=== PATIENT | female | born 1985 | race Caucasian/White ===

== ENCOUNTER → 2017-11-05 | Outpatient (CLI) | payer OTHER | LOC: FIMAGING 12:08 | PROVIDERS: ATTEND Obstetrics & Gynecology | DX: Z36.9 Encounter for antenatal screening, unspecified (principal); Z86.79 Personal history of other diseases of the circulatory system; Z91.89 Other specified personal risk factors, not elsewhere classified; Z3A.19 19 weeks gestation of pregnancy ==

== ENCOUNTER → 2018-02-01 | Outpatient (CLI) | payer OTHER | LOC: FIMAGING 14:42 | PROVIDERS: ATTEND Obstetrics & Gynecology | DX: O10.913 Unspecified pre-existing hypertension complicating pregnancy, third trimester (principal); Z3A.32 32 weeks gestation of pregnancy ==

== ENCOUNTER 2018-02-22 13:43 | Observation (INO) | payer OTHER ==
--- NOTE | 2018-02-22 15:29 | OBPROG ---
Labor Progress Note Assessment/Plan: Assessment: IUP at 35 wks h/o CHTN - checked b/p at home and was elevated no s/s of preeclampsia today Plan: B/P fine, labs fine, will d/c home 02/22/18 15:27 Subjective/Intrapartum Course: 02/22/18 15:32 Pt anxious because b/p elevated at home. had scotomata couple days ago. today , no FUNK or n/v or scotomata or RUQ pain. GFM Objective: 02/22/18 14:35 02/22/18 14:35 Total Bilirubin 0.5 mg/dL (0.1-1.4) 02/22/18 14:35 AST 22 IU/L (14-46) 02/22/18 14:35 ALT 22 IU/L (9-52) 02/22/18 14:35 blood pressure cuff does NOT correlate with current b/p here on LnD, advised pt to stop using - FHR Assessment Caraballo FHR (bpm): 140 FHR Pattern Variability: Moderate FHR Category: 1 (reactive NST, accels, no decels, good BTBV) Oxytocin Orders Assessment - Pre-Induction/Augmentation Assessment Gestational Age: 35 week(s) and 0 day(s) ICD10 Worksheet Patient Problems: Problems Problem Status Onset Elevated blood pressure affecting , antepartum Acute - ICD10 Problem Qualifiers (1) Elevated blood pressure affecting , antepartum
== END 2018-02-22 15:45 | disposition home or self-care (01) ==
LOC: FLD 13:43
PROVIDERS: ADMIT Obstetrics & Gynecology; ATTEND Obstetrics & Gynecology
DX: Z03.79 Encounter for other suspected maternal and fetal conditions ruled out (principal); Z3A.35 35 weeks gestation of pregnancy
CPT/HCPCS: 59025; G0378

== ENCOUNTER 2018-03-10 17:31 | Observation (INO) | payer OTHER ==
[2018-03-10 19:36] LABS: PLATELET COUNT 240 10^3/uL (150-400)
--- NOTE | 2018-03-10 20:21 | GHP ---
DATE OF ADMISSION: 03/10/2018 ADMITTING DIAGNOSES: 1. Intrauterine at 37 weeks 2 days. 2. Chronic hypertension, rule out superimposed preeclampsia. HISTORY OF PRESENT ILLNESS: The patient is a 32-year-old, 1, para 0-0-0 -0, at 37-2/7 weeks with an estimated due date March 29, 2018 by a 6-week ultrasound. The patient presents with complaints of elevated blood pressures at home early this morning; she checks them twice daily. Her blood pressure was 137/93, and then this afternoon at 4 o'clock was 141/99, 152/96, 138/101, 30 minutes apart. The patient states she does have a slight headache, but thinks it is because she is hungry. She denies any visual changes and only notes them when she works out. Denies any right upper quadrant pain or epigastric pain and denies any swelling in lower extremities. The patient states good movement. Denies any contractions, leakage of fluid, or vaginal bleeding. Patient has good care at [facility], and presented in her first trimester. is complicated with a history of chronic hypertension. Patient discontinued lisinopril in 2015. Baseline PIH labs as well as a 24-hour urine was normal. Patient is AMA with normal noninvasive genetic testing. Patient with a questionable history of coagulopathy; she did see a manager solar during the and a negative eval for clotting deficiency and unlikely to have a bleeding disorder. The patient began to have elevated blood pressures in the 3rd trimester at about 34 weeks, 140s over 80s at home. She did have PIH labs done which were normal with a P to C ration at that time of 0.22, the patient did not have preeclampsia. She developed anemia of . The patient did receive Tdap as well as flu vaccine. GBS culture is negative. PAST OB HISTORY: This is the patient's first . PAST FIRE LOOKOUT HISTORY: Age of menarche 13. Cycles every 30-45 days, irregular. LMP 05/30/2017. The patient denies history of abnormal Pap smears or any exposure to sexually transmitted diseases. However, patient does have a history of cold sores, HSV, and denies any genital lesions. MEDICATIONS: vitamins, DHEA, iron. ALLERGIES: No known drug allergies. PAST MEDICAL HISTORY: Chronic hypertension. History of questionable clotting issue as a baby with workup that was negative. Childhood asthma. Mild depression. PAST SURGICAL HISTORY: Remarkable for wrist surgery, wisdom teeth, ruptured L4- L5 disk. FAMILY HISTORY: Paternal aunt, leukemia. Father, leukemia. Paternal grandmother, breast. Paternal uncle, lung cancer. SOCIAL HISTORY: Patient is and lives with her . 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 Currently denies any alcohol, tobacco, or illicit drug use. REVIEW OF SYSTEMS: 10-point review of systems is negative. LABS: First trimester H and H 13.2, 37.6, platelets 259, O positive, antibody negative. RPR nonreactive. Rubella immune. Hepatitis B surface antigen negative. HIV negative. Trio screen negative. Standard panel negative. Baseline PIH labs negative. P to C ratio 0.16. UDS, urine culture, UA negative. Varicella immune. Pap, gonorrhea, chlamydia cultures negative. AFP negative. Innatal screen negative. Third trimester H and H 11 and 33. 1- hour Glucola 117. GBS culture is negative. PHYSICAL EXAMINATION: VITAL SIGNS: On admission, vital signs are stable. Patient is afebrile at 36.4, heart rate 120, did settle down to 73, respirations 18, initial blood pressure on admission 139/94 and then 120s over 70s and as low as 115/71. GENERAL APPEARANCE: The patient is well-nourished, well-developed female, alert and oriented x3. No apparent distress. SKIN: Warm, dry without rash. NEURO: Grossly intact. CARDIOVASCULAR: Regular rate and rhythm. LUNGS: Clear to auscultation bilaterally. ABDOMEN: Gravid, soft , nontender. PELVIC: Exam deferred. EXTREMITIES: Normal to inspection without calf tenderness or edema. Normal reflexes and no clonus. ASSESSMENT AND PLAN: The patient is a 32-year-old, 1, para 0, at 37 and 1/7 weeks with chronic hypertension, rule out superimposed preeclampsia. 1. Admit to Labor and Delivery for observation. 2. Serial blood pressures, PIH labs, P to C ratio pending. 3. NST is reactive, Category 1 tracing. 4. Continue to closely monitor. 5. Blood pressures here are normal 120s over 70s, except for upon admission, the patient is asymptomatic at this time. Headache did resolve after eating. If PIH labs are stable, we will send the patient home with PIH precautions and to keep her scheduled OB appointment 03/12/2018. /[id number]/MODL [email or web address]
--- NOTE | 2018-03-10 20:43 | OBPROG ---
Labor Progress Note Assessment/Plan: Assessment: Pt is a 32 y/o @ 37 2/7 weeks with chronic HTN, r/o superimposed preeclampsia Plan: PIH labs all wnl; P:C is 0.7, no preeclampsia at this time Urine did show bacteria, leuks and was indicated for a urine cx-will await results and hold off on treating at this time, since pt is asymptomatic and Macrobid this late in third trimester can cause hemolytic anemia in baby BPs remain stable Patient is stable for d/c home with PIH precautions To keep scheduled visit in office 03/12/18 03/10/18 20:45 Subjective/Intrapartum Course: 03/10/18 20:45 Pt is feeling fine, FUNK resolved after eating and no other symptoms at this time Objective: 03/10/18 19:15 03/10/18 19:15 Uric Acid 4.1 mg/dL (2.5-6.8) 03/10/18 19:15 Total Bilirubin 0.5 mg/dL (0.1-1.4) 03/10/18 19:15 Conjugated Bilirubin 0.0 mg/dL (0.0-0.5) 03/10/18 19:15 Unconjugated Bilirubin 0.5 mg/dL (0.0-1.1) 03/10/18 19:15 AST 20 IU/L (14-46) 03/10/18 19:15 ALT 25 IU/L (9-52) 03/10/18 19:15 Lactate Dehydrogenase 392 IU/L (313-618) 03/10/18 19:15 - FHR Assessment Caraballo FHR (bpm): 140 FHR Pattern Variability: Moderate FHR Category: 2 Oxytocin Orders Assessment - Pre-Induction/Augmentation Assessment Gestational Age: 37 week(s) and 2 day(s) ICD10 Worksheet Patient Problems: Problems Problem Status Onset Elevated blood pressure affecting , antepartum Acute
== END 2018-03-10 20:55 | disposition home or self-care (01) ==
LOC: FLD 17:31
PROVIDERS: ADMIT Obstetrics & Gynecology; ATTEND Obstetrics & Gynecology
PROC: 4A1HX4Z Monitoring of Products of Conception, Cardiac Electrical Activity, External Approach (ICD-10-PCS; principal; 2018-03-10)
DX: O10.913 Unspecified pre-existing hypertension complicating pregnancy, third trimester (principal); Z3A.37 37 weeks gestation of pregnancy
CPT/HCPCS: 59025; G0378

== ENCOUNTER 2018-03-21 17:04 | Observation (INO) | payer OTHER ==
--- NOTE | 2018-03-21 22:23 | OBPROG ---
Labor Progress Note Assessment/Plan: Assessment: Here for robertson placement prior to IOL tomorrow AM 0600. NST on admission Category I, reactive. SCE prior to robertson bulb placement loose //-2, medium constency. Cook ripening balloon placed with 60cc in the UTERINE balloon and 40cc in the VAGINAL. Pt tolerated placement well, discharged home. Will return for Pitocin at 0600 tomorrow. Subjective/Intrapartum Course: Feeling fine, no real change in ctx's or pressure since visit with Dr. Robin on Thursday. - SVE Dilation (cm): 1 Effacement (%): Less than 50 Station: -2 - Contraction Pattern Assessment Current Contraction Pattern: Irregular - FHR Assessment Caraballo FHR (bpm): 135 FHR Pattern Variability: Moderate FHR Category: 1 Oxytocin Orders Assessment - Pre-Induction/Augmentation Assessment Gestational Age: 38 week(s) and 6 day(s) ICD10 Worksheet Patient Problems: Problems Problem Status Onset Elevated blood pressure affecting , antepartum Acute
== END 2018-03-21 18:31 | disposition home or self-care (01) ==
LOC: FLD 17:04
PROVIDERS: ADMIT Obstetrics & Gynecology; ATTEND Obstetrics & Gynecology
PROC: 0U7C7DZ Dilation of Cervix with Intraluminal Device, Via Natural or Artificial Opening (ICD-10-PCS; principal; 2018-03-21)
DX: Z34.93 Encounter for supervision of normal pregnancy, unspecified, third trimester (principal); Z3A.38 38 weeks gestation of pregnancy
CPT/HCPCS: 59200; G0378

== ENCOUNTER 2018-03-22 06:11 | Inpatient (IN) | payer OTHER ==
[2018-03-22] MEDS ORDERED: OXYTOCIN/RINGERS LACTATE 1,000 ML IV PRN (07:49)
[2018-03-22] MEDS ORDERED: TERBUTALINE SULFATE 1 MG/ML VIAL IV PRN (07:49)
[2018-03-22] MEDS ORDERED: LR 1,000 ML IV PRN (07:49)
[2018-03-22] MEDS ORDERED: MISOPROSTOL 200 MCG TAB PO PRN (07:49)
[2018-03-22] MEDS ORDERED: LIDOCAINE 1% 300 MG/30 ML SDV SC PRN (07:49)
[2018-03-22] MEDS ORDERED: OLIVE OIL 118 ML BTL MISC PRN (07:49)
[2018-03-22] MEDS ORDERED: IBUPROFEN 600 MG TAB PO PRN (07:49)
[2018-03-22] MEDS ORDERED: AMMONIA AROMATIC 1 EACH AMP IH PRN (07:49)
[2018-03-22] MEDS ORDERED: EPSOM SALT 454 GM TP PRN (07:49)
[2018-03-22] MEDS ORDERED: LR 500 ML IV PRN (07:50)
[2018-03-22] MEDS ORDERED: OXYTOCIN/RINGERS LACTATE 500 ML IV SCH (08:00)
[2018-03-22] MEDS ORDERED: AMMONIA AROMATIC 1 EACH AMP IH ONE (08:02)
[2018-03-22] MEDS ORDERED: OXYTOCIN 10 UNIT/ML VIAL ONE (08:02)
[2018-03-22] MEDS ORDERED: LIDOCAINE 1% 300 MG/30 ML SDV ONE (08:02)
[2018-03-22] MEDS ORDERED: OLIVE OIL 118 ML BTL ONE (08:02)
[2018-03-22] MEDS ORDERED: TERBUTALINE SULFATE 1 MG/ML VIAL ONE (08:02)
[2018-03-22] MEDS ORDERED: MISOPROSTOL 200 MCG TAB ONE (08:02)
[2018-03-22 08:17] LABS: PLATELET COUNT 255 10^3/uL (150-400)
--- NOTE | 2018-03-22 09:39 | PDGENHP ---
History and Physical - Chief Complaint induction of labor in setting of chronic HTN - History of Present Illness 33 at 39 wk by 6 wk US not c/w LMP - here for IOL in setting of cHTN. Has been on meds for HTN in the past - Lisinopril, but no meds for the past 2+ years. Baseline PIH labs normal in and when repeated at 34w4d in setting of some labile BPs. Today - good FM, no VB, no LOF, no FUNK, no vis changes, no epigastric pain, no edema. course otherwise uncomplicated. labs - all wnl, including: O pos Rub Imm GBS neg Innatal, carrier screen and Std screen all neg History Information - Allergies/Home Medication List Allergies/Adverse Reactions: cats Allergy (Uncoded 02/22/18 14:27) dogs Allergy (Uncoded 02/22/18 14:27) Home Medications: Dha 1 PO DAILY 03/22/18 [Last Taken 03/19/18 21:00] I have personally reviewed and updated: family history, medical history, social history, surgical history Past Medical History: childhood asthma. hx of mild depression. L4-L5 disc issues - fine after chiropractic treatment - Surgical History Additional surgical history: left wrist surgery. wisdom teeth. no complications with either - Family History Positive for: diabetes type II (P Unc - also lung ca) Additional family history: M - a fib. P Aunt - leukemia. F - leukemia. pGM - Br Ca - Social History Smoking Status: Never smoked Alcohol Use: None Drug Use: None Review of Systems Review of Systems: ROS: 10pt was reviewed & negative except for what was stated in HPI & below Physical Exam Physical Exam: FHR 145 reactive toco - rare ctxns VSS mild tachycardia on admit, now HR 80s BP 129/81 Constitutional: no apparent distress, appears nourished Eyes: PERRL, EOMI Ears, Nose, Mouth, Throat: moist mucous membranes, hearing normal, ears appear normal Cardiovascular: regular rate and rhythym Respiratory: no respiratory distress, no rales or rhonchi Gastrointestinal: normoactive bowel sounds (gravid, fundus c/w 39 weeks, NT), other (Abd US done - confirmed cephalic presentation) Genitourinary: no bladder fullness Skin: warm, normal color, mottled Musculoskeletal: full muscle strength Neurologic: AAOx3 Psychiatric: interacting appropriately, not anxious Lab Data & Imaging Review 03/22/18 07:15 03/22/18 07:15 WBC 11.88 10^3/uL (3.80-9.50) H 03/22/18 07:15 RBC 3.92 10^6/uL (4.18-5.33) L 03/22/18 07:15 Hgb 12.8 g/dL (12.6-16.3) 03/22/18 07:15 Hct 36.9 % (38.0-47.0) L 03/22/18 07:15 MCV 94.1 fL (81.5-99.8) 03/22/18 07:15 MCH 32.7 pg (27.9-34.1) 03/22/18 07:15 MCHC 34.7 g/dL (32.4-36.7) 03/22/18 07:15 RDW 12.7 % (11.5-15.2) 03/22/18 07:15 Plt Count 255 10^3/uL (150-400) 03/22/18 07:15 MPV 10.7 fL (8.7-11.7) 03/22/18 07:15 Neut % (Auto) 79.2 % (39.3-74.2) H 03/22/18 07:15 Lymph % (Auto) 13.4 % (15.0-45.0) L 03/22/18 07:15 Sharp % (Auto) 6.0 % (4.5-13.0) 03/22/18 07:15 Eos % (Auto) 0.6 % (0.6-7.6) 03/22/18 07:15 Baso % (Auto) 0.3 % (0.3-1.7) 03/22/18 07:15 Nucleat RBC Rel Count 0.0 % (0.0-0.2) 03/22/18 07:15 Absolute Neuts (auto) 9.42 10^3/uL (1.70-6.50) H 03/22/18 07:15 Absolute Lymphs (auto) 1.59 10^3/uL (1.00-3.00) 03/22/18 07:15 Absolute Monos (auto) 0.71 10^3/uL (0.30-0.80) 03/22/18 07:15 Absolute Eos (auto) 0.07 10^3/uL (0.03-0.40) 03/22/18 07:15 Absolute Basos (auto) 0.03 10^3/uL (0.02-0.10) 03/22/18 07:15 Absolute Nucleated RBC 0.00 10^3/uL (0-0.01) 03/22/18 07:15 Immature Gran % 0.5 % (0.0-1.1) 03/22/18 07:15 Immature Gran # 0.06 10^3/uL (0.00-0.10) 03/22/18 07:15 BUN 11 mg/dL (7-23) 03/22/18 07:15 Creatinine 0.5 mg/dL (0.6-1.0) L 03/22/18 07:15 Estimated GFR > 60 03/22/18 07:15 Uric Acid 4.7 mg/dL (2.5-6.8) 03/22/18 07:15 Total Bilirubin 0.5 mg/dL (0.1-1.4) 03/22/18 07:15 Conjugated Bilirubin 0.1 mg/dL (0.0-0.5) 03/22/18 07:15 Unconjugated Bilirubin 0.4 mg/dL (0.0-1.1) 03/22/18 07:15 AST 21 IU/L (14-46) 03/22/18 07:15 ALT 20 IU/L (9-52) 03/22/18 07:15 Lactate Dehydrogenase 559 IU/L (313-618) 03/22/18 07:15 Patient ABO/Rh O POSITIVE 03/22/18 07:15 Antibody Screen NEGATIVE 03/22/18 07:15 Assessment & Plan Assessment: 33 at 39 wk, undergoing IOL in setting of cHTN 1) normal pih labs, BPS stable, cephalic presentation confirmed 2) had Cook catheter placed yesterday evening - 60 U, 40 V - attempted tension and is still in place 3) will start pitocin induction and remove catheter mid day if has not spontaneously come out. B/R/A of pitocin discussed, EFW = 3400gm Isabela Robin MD, FACOG [facility]
--- NOTE | 2018-03-22 17:32 | OBPROG ---
Labor Progress Note Assessment/Plan: Assessment: 33 at 39 wk, undergoing IOL secondary to chronic HTN, not currently on any meds. Slow progress - not in active labor, but transcervical balloon catheter did come out intact. Pitocin at max dosing. Plan: Will stop pitocin, allow pt to eat and shower, and resume pitocin induction after that. Isabela Robin MD, FACOG [facility] 03/22/18 17:27 Subjective/Intrapartum Course: Pt feeling very mild contractions, no pain. Is a little hungry. Frustrated at minimal progress. No LOF. Good FM. No ssx PIH. 03/22/18 17:32 Objective: 03/22/18 07:15 03/22/18 07:15 Patient ABO/Rh O POSITIVE 03/22/18 07:15 Uric Acid 4.7 mg/dL (2.5-6.8) 03/22/18 07:15 Total Bilirubin 0.5 mg/dL (0.1-1.4) 03/22/18 07:15 Conjugated Bilirubin 0.1 mg/dL (0.0-0.5) 03/22/18 07:15 Unconjugated Bilirubin 0.4 mg/dL (0.0-1.1) 03/22/18 07:15 AST 21 IU/L (14-46) 03/22/18 07:15 ALT 20 IU/L (9-52) 03/22/18 07:15 Lactate Dehydrogenase 559 IU/L (313-618) 03/22/18 07:15 gen - pleasant, NAD - SVE Dilation (cm): 3 Effacement (%): 75 Station: -3 Membranes: Intact Amniotic Fluid Color: Clear - Contraction Pattern Assessment Current Contraction Pattern: Regular - FHR Assessment Caraballo FHR (bpm): 145 FHR Pattern Variability: Moderate FHR Category: 1 Oxytocin Orders Assessment - Pre-Induction/Augmentation Assessment Gestational Age: 39 week(s) and 0 day(s) ICD10 Worksheet Patient Problems: Problems Problem Status Onset Elevated blood pressure affecting , antepartum Acute
--- NOTE | 2018-03-22 23:50 | OBPROG ---
Labor Progress Note Assessment/Plan: Assessment: 33 at 39 wk, undergoing IOL secondary to chronic HTN, not currently on any meds. Slow progress - not in active labor, but transcervical balloon catheter did come out intact. Pitocin at max dosing. Plan: Will stop pitocin, allow pt to eat and shower, and resume pitocin induction after that. Isabela Robin MD, FACOG [facility] 03/22/18 17:27 A/P: 33 at 39 wk, undergoing IOL 2/2 cHTN - stopped pitocin, pt ate and showered and pitocin resumed. Has made a small amount of change. Will continue with pitocin for now. [facility] 03/22/18 23:57 Subjective/Intrapartum Course: Pt feeling very mild contractions, no pain. Is a little hungry. Frustrated at minimal progress. No LOF. Good FM. No ssx PIH. 03/22/18 17:32 Pt doing well, feeling a little more pressure, though not discomfort. Some bloody show, but no LOF. 03/22/18 23:59 Objective: 03/22/18 07:15 03/22/18 07:15 Patient ABO/Rh O POSITIVE 03/22/18 07:15 Uric Acid 4.7 mg/dL (2.5-6.8) 03/22/18 07:15 Total Bilirubin 0.5 mg/dL (0.1-1.4) 03/22/18 07:15 Conjugated Bilirubin 0.1 mg/dL (0.0-0.5) 03/22/18 07:15 Unconjugated Bilirubin 0.4 mg/dL (0.0-1.1) 03/22/18 07:15 AST 21 IU/L (14-46) 03/22/18 07:15 ALT 20 IU/L (9-52) 03/22/18 07:15 Lactate Dehydrogenase 559 IU/L (313-618) 03/22/18 07:15 VS - 36.9 84 16 126/69 gen - pleasant, NAD P/C = 0.2 - SVE Dilation (cm): 4 Effacement (%): 50 Membranes: Intact - Contraction Pattern Assessment Current Contraction Pattern: Regular (q2-4) - FHR Assessment Caraballo FHR (bpm): 130 FHR Pattern Variability: Moderate FHR Category: 1 - Physical Exam General Appearance: WD/WN Oxytocin Orders Assessment - Pre-Induction/Augmentation Assessment Indication: IOL Presentation: Occiput Posterior Gestational Age: 39 week(s) and 0 day(s) Gestational Age Determined By: Ultrasound (at 6 wk) Estimated Weight: Less than 2500g Current Contraction Pattern: Regular - Heart Rate Pattern Caraballo FHR Baseline (bpm): 140 FHR Category: 1 FHR Pattern Variability: Moderate FHR Accelerations: Present FHR Decelerations: Variable (had a prolonged variable for 1.5 min intermittently in the 80s at 2312) ICD10 Worksheet Patient Problems: Problems Problem Status Onset Chronic hypertension affecting Acute Chronic hypertension affecting Acute Elevated blood pressure affecting , antepartum Acute - ICD10 Problem Qualifiers (1) Chronic hypertension affecting (2) Chronic hypertension affecting
[2018-03-23] MEDS ORDERED: hydrOXYzine HCL 50 MG TAB PO PRN (00:49)
[2018-03-23] MEDS ORDERED: fentaNYL 100 MCG/2 ML INJ ONE (02:53)
[2018-03-23] MEDS ORDERED: fentaNYL 2MCG/ML/BUP 0.1% RTU 100 ML BAG EP ONE (02:53)
[2018-03-23] MEDS ORDERED: PHENYLEPHRINE HCL 100 MCG/ML SYR ONE (02:54)
[2018-03-23] MEDS ORDERED: BUPIVACAINE 0.25% 30 ML SDV ONE (02:54)
[2018-03-23] MEDS ORDERED: ONDANSETRON 4 MG/2 ML VIAL IVP PRN ×2 (03:33→03:34)
[2018-03-23] MEDS ORDERED: METOCLOPRAMIDE 10 MG/2 ML VIAL IVP PRN ×2 (03:33→03:34)
[2018-03-23] MEDS ORDERED: PHENYLEPHRINE HCL 100 MCG/ML SYR IVP PRN ×2 (03:33→03:34)
--- NOTE | 2018-03-23 03:37 | PREANESOB ---
Obstetric Pre-Anesthesia Info - General Info : 1 Para: 0 SUKI: 03/29/18 Gestational Age: 39 week(s) and 0 day(s) - Labor Status Cervical Dilation per last OB SVE: 4 Station per last OB SVE: -3 Amniotic Fluid Color: Clear Anesthesia Allergies/Adverse Reactions: Allergy/AdvReac Type Severity Reaction Status Date / Time cats Allergy Uncoded 02/22/18 14:27 dogs Allergy Uncoded 02/22/18 14:27 Home Medications: Medication Instructions Recorded Dha 1 PO DAILY 03/22/18 Visit Medications: Generic Name Dose Route Start Last Admin Trade Name Freq PRN Reason Stop Dose Admin Ammonia (Aromatic Spirit) 1 each 03/22/18 07:49 Ammonia Aromatic IH 04/01/18 07:48 ONCE PRN Fainting Hydroxyzine HCl 100 mg 03/23/18 00:49 03/23/18 00:55 Hydroxyzine Hcl PO 09/19/18 00:48 100 mg HS PRN Administration Sleep Lactated Ringer's 1,000 mls @ 0 mls/hr 03/22/18 07:49 03/22/18 08:14 Lr IV 03/23/18 07:48 1,000 mls PRN PRN Administration SEE PROTOCOL CONDITIONS Protocol Per Protocol Lactated Ringer's 500 mls @ 500 mls/hr 03/22/18 07:50 Lr IV 03/23/18 07:50 PRN PRN Maternal Hypotension Oxytocin/Lactated Ringer's 1,000 mls @ 125 mls/hr 03/22/18 07:49 Pitocin 20 Units/Lr (Premix) IV PRN PRN Post bleeding Oxytocin/Lactated Ringer's 500 mls @ 0 mls/hr 03/22/18 08:00 03/22/18 08:13 Pitocin 30 Units/Lr (Premix) IV 09/18/18 07:59 500 mls CONT CHINTAN Administration Protocol Per Protocol Ibuprofen 600 mg 03/22/18 07:49 Motrin PO ONCE PRN post , pain Lidocaine HCl 300 mg 03/22/18 07:49 Lidocaine Hcl 1% SC 09/18/18 07:48 ONCE PRN episiotomy Magnesium Sulfate 454 gm 03/22/18 07:49 Epsom Salt TP 09/18/18 07:48 Q1H PRN perineal discomfort Misoprostol 800 - 1,000 mcg 03/22/18 07:49 Cytotec PO 09/18/18 07:48 ONCE PRN Vaginal Atony/Bleeding [place] Oil 118 ml 03/22/18 07:49 Sweet Oil MISC 09/18/18 07:48 ONCE PRN perineal massage Terbutaline Sulfate 0.25 mg 03/22/18 07:49 Brethine IV 09/18/18 07:48 ONCE PRN Tachysystole Discontinued Medications Generic Name Dose Route Start Last Admin Trade Name Renetta PRN Reason Stop Dose Admin Ammonia (Aromatic Spirit) Confirm 03/22/18 08:02 Ammonia Aromatic Administered 03/22/18 08:03 Dose 1 each IH .STK-MED ONE Bupivacaine HCl Confirm 03/23/18 02:54 Sensorcaine 0.25% Sdv Administered 03/23/18 02:55 Dose 30 ml .ROUTE .STK-MED ONE Fentanyl Confirm 03/23/18 02:53 Sublimaze Administered 03/23/18 02:54 Dose 100 mcg .ROUTE .STK-MED ONE Fentanyl/Bupivacaine HCl Confirm 03/23/18 02:53 Fentanyl/Bupivacaine/Ns 2 Mcg/Ml 0.1% (Premix Administered 03/23/18 02:54 Dose 100 ml EP .STK-MED ONE Lidocaine HCl Confirm 03/22/18 08:02 Lidocaine Hcl 1% Administered 03/22/18 08:03 Dose 300 mg .ROUTE .STK-MED ONE Misoprostol Confirm 03/22/18 08:02 Cytotec Administered 03/22/18 08:03 Dose 1,000 mcg .ROUTE .STK-MED ONE [place] Oil Confirm 03/22/18 08:02 Sweet Oil Administered 03/22/18 08:03 Dose 118 ml .ROUTE .STK-MED ONE Oxytocin Confirm 03/22/18 08:02 Pitocin Administered 03/22/18 08:03 Dose 40 unit .ROUTE .STK-MED ONE Phenylephrine HCl Confirm 03/23/18 02:54 Neosynephrine Administered 03/23/18 02:55 Dose 1,000 mcg .ROUTE .STK-MED ONE Terbutaline Sulfate Confirm 03/22/18 08:02 Brethine Administered 03/22/18 08:03 Dose 1 mg .ROUTE .STK-MED ONE - Vital Signs Height/Weight (Nursing): Height 175.26 cm Weight 81.647 kg - Focused Exam Mallampati Score: Class 2 Mouth exam: normal dental/mouth exam Pulmonary: no respiratory distress Cardiovascular: regular rate and rhythym Labs: 03/22/18 07:15 03/22/18 07:15 Patient ABO/Rh O POSITIVE 03/22/18 07:15 Uric Acid 4.7 mg/dL (2.5-6.8) 03/22/18 07:15 Total Bilirubin 0.5 mg/dL (0.1-1.4) 03/22/18 07:15 Conjugated Bilirubin 0.1 mg/dL (0.0-0.5) 03/22/18 07:15 Unconjugated Bilirubin 0.4 mg/dL (0.0-1.1) 03/22/18 07:15 AST 21 IU/L (14-46) 03/22/18 07:15 ALT 20 IU/L (9-52) 03/22/18 07:15 Lactate Dehydrogenase 559 IU/L (313-618) 03/22/18 07:15 - Plan Consent Signed and on Chart: Yes Urgent/Emergent Case: Francis jacobson completed preop but documented later for safe timely pt care
[2018-03-23] MEDS ORDERED: LR 500 ML IV SCH ×2 (04:00)
[2018-03-23] MEDS ORDERED: fentaNYL 2MCG/ML/BUP 0.1% RTU 100 ML EP SCH ×2 (04:00)
--- NOTE | 2018-03-23 05:19 | OBDEL ---
Info Type: Vaginal Presentation at Delivery: Vertex L&D Analgesia/Anesthesia Type: Epidural GBS+: No Intrapartum Medications: Generic Name Dose Route Start Last Admin Trade Name Freq PRN Reason Stop Dose Admin Hydroxyzine HCl 100 mg 03/23/18 00:49 03/23/18 00:55 Hydroxyzine Hcl PO 09/19/18 00:48 100 mg HS PRN Administration Sleep Lactated Ringer's 1,000 mls @ 0 mls/hr 03/22/18 07:49 03/22/18 08:14 Lr IV 03/23/18 07:48 1,000 mls PRN PRN Administration SEE PROTOCOL CONDITIONS Protocol Per Protocol Oxytocin/Lactated Ringer's 500 mls @ 0 mls/hr 03/22/18 08:00 03/22/18 08:13 Pitocin 30 Units/Lr (Premix) IV 09/18/18 07:59 500 mls CONT CHINTAN Administration Protocol Per Protocol - Hospital Course Intrapartum: Pt feeling very mild contractions, no pain. Is a little hungry. Frustrated at minimal progress. No LOF. Good FM. No ssx PIH. 03/22/18 17:32 Pt doing well, feeling a little more pressure, though not discomfort. Some bloody show, but no LOF. 03/22/18 23:59 Indications for Delivery: Chronic Hypertension Controlled No Meds Vaginal Delivery - Delivery Provider Delivery Physician/CNM: Isabela Robin - Labor and Delivery Onset of Contractions Date: 03/23/18 Onset of Contractions Time: 02:41 Onset of Contractions Type: Induced Rupture of Membranes Date: 03/23/18 Rupture of Membranes Time: 03:45 Rupture of Membranes Type: Spontaneous Amniotic Fluid Color: Clear Dilation Complete Date: 03/23/18 Dilation Complete Time: 03:20 Placenta Delivery Date: 03/23/18 Placenta Delivery Time: 04:59 Total Hours of Labor: 2 Laceration: 2nd Degree Repair: 3-0 Vaginal Sponge Count Correct: Yes Vaginal Needle Count Correct: Yes Vaginal Sweep Performed: Yes EBL: 300 Delivery Events: Nuchal Cord (x1 reduced on perineum) Delivery Comment: After having a Narayanan bulb in overnight, it came out spontaneously around 1330. Pitocin was continued. Pt requested and epidural around 0245 and was 4 cm dilated, and then was completely dilated immediately after epidural placement. She pushed for 1hr 16 min. Delivery of , MAGDALENA, bulb suctioned on perineum , one nuchal cord reduced. No dystocia noted, and easy delivery of body of baby and baby immediately to maternal chest. Just over 1 min delay until cord was clamped and cut. Placenta delivered spontaneously at 0459, 5 min after delivery of . Exam revealed a smal 2nd degree laceration which was repaired in standard fashion with 3.0 Vicryl. Fundal massage was performed with a vaginal sweep. Sponge, lap and needle counts were correct. Pt tolerated procedure well. Baby and infant left in stable condition with RN present in room. - Medications Labor Augmentation/Induction Methods Used: Pitocin, Narayanan Bulb Labor Augmentation/Induction Indication: Medical (cHTN) Data SUKI: 03/29/18 Gestational Age: 39 week(s) and 1 day(s) Caraballo Delivery Date: 03/23/18 Delivery Time: 04:54 Sex of Infant: Female Score (1 Min): 8 Score (5 Min): 9 ICD10 Worksheet Patient Problems: Problems Problem Status Onset Chronic hypertension affecting Acute Chronic hypertension affecting Acute Vaginal delivery Acute Vaginal delivery Acute Elevated blood pressure affecting , antepartum Acute - ICD10 Problem Qualifiers (1) Chronic hypertension affecting (2) Chronic hypertension affecting (3) Vaginal delivery (4) Vaginal delivery
--- NOTE | 2018-03-23 05:57 | POSTANESTH ---
Post Anesthetic Evaluation Cardiovascular Status: Similar to Pre-Op Cond Respiratory Status: Similar to Pre-op Cond. Level of Consciousness/Mental Status: Alert and Oriented Pain Control: Adequate, Prn Tx Ordered Nausea/Vomiting Control: Adequate, Prn Tx Ordered Complications Possibly Related to Anesthesia: None Noted
[2018-03-23] MEDS: IBUPROFEN 600 MG TAB PO SCH ×3 (11:44→23:56)
[2018-03-23] MEDS: ACETAMINOPHEN 325 MG TAB PO SCH ×3 (11:46→20:26)
[2018-03-24] MEDS: IBUPROFEN 600 MG TAB PO SCH ×2 (06:20→13:29)
[2018-03-24] MEDS: ACETAMINOPHEN 325 MG TAB PO SCH ×3 (06:26→17:13)
[2018-03-24 08:02] VITALS: BP 125/77
[2018-03-24] MEDS ORDERED: DOCUSATE SODIUM 100 MG CAP PO PRN (11:20)
[2018-03-24] MEDS ORDERED: HYDROCORTISONE 0.5% CREAM TP PRN (11:20)
--- NOTE | 2018-03-24 12:40 | OBPP ---
Progress Note Assessment/Plan: Assessment: PPD1 s/p - IOL for well controlled chronic HTN/elective. BPs normal range, normal labs on admission, no s/sx of PIH. No meds. Iron supps ordered today, Hct 31.7. O pos Rubella immune GBS neg Would like to go home later today (delivered early yesterday). I think that's fine. Fu office 4 and 6 wks. VELASQUEZ Subjective/ Course: 03/24/18 12:32 Doing great - feeling ready for dc later today if okay with peds. Pain minimal , BF going well. Objective: 03/24/18 05:23 03/22/18 07:15 Patient ABO/Rh O POSITIVE 03/22/18 07:15 Uric Acid 4.7 mg/dL (2.5-6.8) 03/22/18 07:15 Total Bilirubin 0.5 mg/dL (0.1-1.4) 03/22/18 07:15 Conjugated Bilirubin 0.1 mg/dL (0.0-0.5) 03/22/18 07:15 Unconjugated Bilirubin 0.4 mg/dL (0.0-1.1) 03/22/18 07:15 AST 21 IU/L (14-46) 03/22/18 07:15 ALT 20 IU/L (9-52) 03/22/18 07:15 Lactate Dehydrogenase 559 IU/L (313-618) 03/22/18 07:15 Temp Pulse Resp BP Pulse Ox 36.2 C 65 15 125/77 H 97 03/24/18 08:00 03/24/18 08:00 03/24/18 08:00 03/24/18 08:00 03/24/18 08:00 Uterine Position/Fundal Height: At Umbilicus Uterine Tone: Firm
[2018-03-24] MEDS ORDERED: FERROUS SULFATE 140 MG TAB.ER PO SCH (12:45)
--- NOTE | 2018-03-24 12:48 | OBGCSDC ---
General Delivery Information - General Info : 1 Para: 1 Abortions: 0 Type: Vaginal L&D Analgesia/Anesthesia Type: Epidural Admission Date: 03/22/18 Labs: Patient ABO/Rh O POSITIVE 03/22/18 07:15 Hct 31.7 % (38.0-47.0) L 03/24/18 05:23 - Hospital Course Intrapartum: Pt feeling very mild contractions, no pain. Is a little hungry. Frustrated at minimal progress. No LOF. Good FM. No ssx PIH. 03/22/18 17:32 Pt doing well, feeling a little more pressure, though not discomfort. Some bloody show, but no LOF. 03/22/18 23:59 : 03/24/18 12:32 Doing great - feeling ready for dc later today if okay with peds. Pain minimal , BF going well. Vaginal - Delivery Provider Delivery Physician/CNM: Isabela Robin - Diagnosis Labor: Induced Rupture of Membranes Type: Spontaneous Amniotic Fluid Color: Clear Laceration: 2nd Degree Repair: 3-0 Delivery Events: Nuchal Cord (x1 reduced on perineum) - Delivery EBL: [address] [place] Data SUKI: 03/29/18 Gestational Age: 39 week(s) and 2 day(s) [place] Delivery Date: 03/23/18 Delivery Time: 04:54 Sex of : Female [place] Weight (gm): 3120 g Score (1 Min): 8 Score (5 Min): 9 Discharge Information - Discharge Information Condition: Good Instruction/Follow Up: See Instruction Sheet, Four Weeks, Six Weeks
== END 2018-03-24 18:00 | disposition home or self-care (01) | DRG 807 ==
LOC: FLD 06:11 → FOB 03-23 07:45
PROVIDERS: ADMIT Obstetrics & Gynecology; ATTEND Obstetrics & Gynecology
PROC: 0U7C7DZ Dilation of Cervix with Intraluminal Device, Via Natural or Artificial Opening (ICD-10-PCS; principal; 2018-03-22)
PROC: 3E033VJ Introduction of Other Hormone into Peripheral Vein, Percutaneous Approach (ICD-10-PCS; principal; 2018-03-22)
PROC: 0KQM0ZZ Repair Perineum Muscle, Open Approach (ICD-10-PCS; 2018-03-23)
PROC: 10E0XZZ Delivery of Products of Conception, External Approach (ICD-10-PCS; 2018-03-23)
DX: O10.92 Unspecified pre-existing hypertension complicating childbirth (principal); O70.1 Second degree perineal laceration during delivery; O69.82X0 Labor and delivery complicated by other cord entanglement, without compression, not applicable or unspecified; Z86.79 Personal history of other diseases of the circulatory system; Z3A.39 39 weeks gestation of pregnancy; Z37.0 Single live birth
CPT/HCPCS: J2370; J2590; J3010; J3105